=== PATIENT | male | born 1995 | race Caucasian/White ===

== ENCOUNTER 2018-03-08 17:29 | Emergency (ER) | payer OTHER ==
[2018-03-08] MEDS ORDERED: NA CHLORIDE 0.9% 1,000 ML ONE (18:13)
[2018-03-08 18:32] LABS: Absolute Lymphocytes (CBC) 2.4 K/uL (0.7-4.9); Absolute Monocytes 0.6 K/uL (0.1-1.3); Absolute Neutrophil 6.5 K/uL (1.8-8.0); Basophils % 0.7 % (0-1.3); Eosinophils % 5.2 % (0-4.4); Hematocrit 45.9 % (39.6-49.0); Lymphocytes % 23.4 % (15.3-44.8); MCH 29.8 pg (27.0-35.0); MCV 86.6 fL (80-100); MPV 8.4 fL (7.6-11.3); Monocytes % 6.4 % (3.3-12.3)
[2018-03-08 18:40] LABS: BUN Blood Urea Nitrogen 13 mg/dL (7-18); Bicarbonate 28 mmol/L (21-32); Glucose Level 221 mg/dL (74-106); Sodium Level 138 mmol/L (136-145)
[2018-03-08 18:40] LABS: Urine Blood NEGATIVE (NEG); Urine Glucose TRACE (NEG); Urine Protein NEGATIVE (NEG)
--- NOTE | 2018-03-08 19:19 | EDPHYS ---
Physician Documentation [facility] Name: Shawn Matthews Age: 22 yrs Sex: Male : 1995 Arrival Date: 03/08/2018 Time: 17:32 Bed 4 Private MD: None, None ED Physician Shawn Hobbs HPI: 03/08 19:19 This 22 yrs old Male presents to ER via Ambulatory with complaints of High kb Blood Sugar. 19:19 The patient or guardian reports hyperglycemia, that was potentially precipitated by no kb particular event. Onset: The symptoms/episode began/occurred 4 day(s) ago. Associated signs and symptoms: Pertinent positives: None. Current symptoms: In the emergency department the patient's symptoms are unchanged from the initial presentation. The patient has experienced similar episodes in the past. The patient has been recently seen by a physician:. Pt states his bgl has been elevated since Sunday. Denies change in diet or medications. . Historical: - Allergies: 17:59 No Known Allergies; ch - Home Meds: 17:59 Insulin: Regular Sub-Q [Active]; ch - PMHx: 17:59 Diabetes - IDDM; ch - PSHx: 17:59 None; ch - Immunization history:: Adult Immunizations up to date, Last tetanus immunization: up to date Flu vaccine is up to date. - Social history:: Smoking status: Patient/guardian denies using tobacco, Patient/guardian denies using alcohol, street drugs. - Ebola Screening: : Patient negative for fever greater than or equal to 101.5 degrees Fahrenheit, and additional compatible Ebola Virus Disease symptoms Patient denies exposure to infectious person Patient denies travel to an Ebola-affected area in the 21 days before illness onset No symptoms or risks identified at this time. ROS: 19:19 Constitutional: Negative for fever, chills, and weight loss, Neck: Negative for injury, kb pain, and swelling, Cardiovascular: Negative for chest pain, palpitations, and edema, Respiratory: Negative for shortness of breath, cough, wheezing, and pleuritic chest pain, Abdomen/GI: Negative for abdominal pain, nausea, vomiting, diarrhea, and constipation, Back: Negative for injury and pain, : Negative for injury, bleeding, discharge, and swelling, MS/Extremity: Negative for injury and deformity, Skin: Negative for injury, rash, and discoloration, Neuro: Negative for headache, weakness, numbness, tingling, and seizure. Exam: 19:19 Constitutional: This is a well developed, well nourished patient who is awake, alert, kb and in no acute distress. Head/Face: Normocephalic, atraumatic. Eyes: Pupils equal round and reactive to light, extra-ocular motions intact. Lids and lashes normal. Conjunctiva and sclera are non-icteric and not injected. Cornea within normal limits. Periorbital areas with no swelling, redness, or edema. ENT: Nares patent. No nasal discharge, no septal abnormalities noted. Tympanic membranes are normal and external auditory canals are clear. Oropharynx with no redness, swelling, or masses, exudates, or evidence of obstruction, uvula midline. Mucous membranes moist. Neck: Trachea midline, no thyromegaly or masses palpated, and no cervical lymphadenopathy. Supple, full range of motion without nuchal rigidity, or vertebral point tenderness. No Meningismus. Chest/axilla: Normal chest wall appearance and motion. Nontender with no deformity. No lesions are appreciated. Cardiovascular: Regular rate and rhythm with a normal S1 and S2. No gallops, murmurs, or rubs. Normal PMI, no JVD. No pulse deficits. Respiratory: Lungs have equal breath sounds bilaterally, clear to auscultation and percussion. No rales, rhonchi or wheezes noted. No increased work of breathing, no retractions or nasal flaring. Abdomen/GI: Soft, non-tender, with normal bowel sounds. No distension or tympany. No guarding or rebound. No evidence of tenderness throughout. Back: No spinal tenderness. No costovertebral tenderness. Full range of motion. Skin: Warm, dry with normal turgor. Normal color with no rashes, no lesions, and no evidence of cellulitis. MS/ Extremity: Pulses equal, no cyanosis. Neurovascular intact. Full, normal range of motion. Neuro: Awake and alert, GCS 15, oriented to person, place, time, and situation. Cranial nerves II-XII grossly intact. Motor strength 5/5 in all extremities. Sensory grossly intact. Cerebellar exam normal. Normal gait. Vital Signs: 17:59 BP 135 / 88; Pulse 71; Resp 16; Temp 98.3; Pulse Ox 99% on R/A; Weight 108.86 kg; ch Height 5 ft. 11 in. (180.34 cm); Pain 0/10; 19:29 BP 132 / 78; Pulse 65; Resp 18; Temp 98.3; Pulse Ox 99% on R/A; Pain 0/10; ch 17:59 Body Mass Index 33.47 (108.86 kg, 180.34 cm) MDM: 17:46 Patient medically screened. kb 19:20 Data reviewed: vital signs, nurses notes. Data interpreted: Pulse oximetry: on room air kb is 99 %. Interpretation: normal. Counseling: I had a detailed discussion with the patient and/or guardian regarding: the historical points, exam findings, and any diagnostic results supporting the discharge/admit diagnosis, lab results, the need for outpatient follow up, [employer], to return to the emergency department if symptoms worsen or persist or if there are any questions or concerns that arise at home. 03/08 17:44 Order name: Glucose, Ancillary Testing; Complete Time: 17:50 EDMS 03/08 17:46 Order name: CBC with Diff; Complete Time: 18:39 kb 03/08 17:46 Order name: Basic Metabolic Panel; Complete Time: 19:07 kb 03/08 17:46 Order name: Acetone, Serum; Complete Time: 19:07 kb 03/08 18:18 Order name: Urine Dipstick--Ancillary (enter results); Complete Time: 18:41 eb 03/08 17:46 Order name: Urine Dipstick-Ancillary (obtain specimen); Complete Time: 18:20 kb Administered Medications: 18:20 Drug: NS 0.9% 1000 ml Route: IV; Rate: 1000 ml; Site: left forearm; Point of Care Testing: Blood Glucose: 18:01 Blood Glucose: 190 mg/dL; Ranges: Critical Glucose Levels:Adult <50 mg/dl or >400 mg/dl <40 mg/dl or >180 mg/dl Disposition: 03/08/18 19:19 Discharged to Home. Impression: Hyperglycemia, unspecified. - Condition is Stable. - Discharge Instructions: Hyperglycemia, [id number]. - Medication Reconciliation Form, Thank You Letter, Antibiotic Education, Prescription Opioid Use form. - Follow up: Emergency Department; When: As needed; Reason: Worsening of condition. Follow up: Private Physician; When: 2 - 3 days; Reason: Recheck today's complaints, Continuance of care, Re-evaluation by your physician. Signatures: Dispatcher [employer] Lottie Stafford, DERIK VALDES-Fabby Colin, RN RN Corrections: (The following items were deleted from the chart) 19:30 19:19 03/08/2018 19:19 Discharged to Home. Impression: Hyperglycemia, unspecified. ch Condition is Stable. Forms are Medication Reconciliation Form, Thank You Letter, Antibiotic Education, Prescription Opioid Use. Follow up: Emergency Department; When: As needed; Reason: Worsening of condition. Follow up: Private Physician; When: 2 - 3 days; Reason: Recheck today's complaints, Continuance of care, Re-evaluation by your physician. kb
--- NOTE | 2018-03-08 19:19 | ER ---
Nurse's Notes [facility] Name: Shawn Matthews Age: 22 yrs Sex: Male : 1995 Arrival Date: 03/08/2018 Time: 17:32 Bed 4 Private MD: None, None Diagnosis: Hyperglycemia, unspecified Presentation: 03/08 17:57 Presenting complaint: Patient states: HIGH BLOOD SUGAR SINCE SUNDAY. C/O STOMACH ACHES ch WELL. Transition of care: patient was not received from another setting of care. Onset of symptoms was March 05, 2018. Risk Assessment: Do you want to hurt yourself or someone else? Patient reports no desire to harm self or others. Initial Sepsis Screen: Does the patient meet any 2 criteria? No. Patient's initial sepsis screen is negative. Does the patient have a suspected source of infection? No. Patient's initial sepsis screen is negative. Care prior to arrival: None. 17:57 Method Of Arrival: Ambulatory 17:57 Acuity: KURT 3 Triage Assessment: 17:59 General: Appears in no apparent distress. comfortable, Behavior is calm, cooperative, ch appropriate for age. Pain: Complains of pain in abdomen. Neuro: No deficits noted. Historical: - Allergies: 17:59 No Known Allergies; ch - Home Meds: 17:59 Insulin: Regular Sub-Q [Active]; ch - PMHx: 17:59 Diabetes - IDDM; ch - PSHx: 17:59 None; ch - Immunization history:: Adult Immunizations up to date, Last tetanus immunization: up to date Flu vaccine is up to date. - Social history:: Smoking status: Patient/guardian denies using tobacco, Patient/guardian denies using alcohol, street drugs. - Ebola Screening: : Patient negative for fever greater than or equal to 101.5 degrees Fahrenheit, and additional compatible Ebola Virus Disease symptoms Patient denies exposure to infectious person Patient denies travel to an Ebola-affected area in the 21 days before illness onset No symptoms or risks identified at this time. Screenin:01 Abuse screen: Denies threats or abuse. Denies injuries from another. Nutritional ch screening: No deficits noted. Tuberculosis screening: No symptoms or risk factors identified. Fall Risk None identified. Assessment: 18:01 Reassessment: Patient appears in no apparent distress at this time. Patient and/or ch family updated on plan of care and expected duration. Pain level reassessed. Patient is alert, oriented x 3, equal unlabored respirations, skin warm/dry/pink. General: Appears in no apparent distress. comfortable, Behavior is calm, cooperative, appropriate for age. Pain: Denies pain. Neuro: No deficits noted. Respiratory: Airway is patent Respiratory effort is even, unlabored, Breath sounds are clear bilaterally. GI: Abdomen is round non-distended, Bowel sounds present X 4 quads. Abd is soft and non tender X 4 quads. : No signs and/or symptoms were reported regarding the genitourinary system. Derm: Skin is pink, warm \T\ dry. 18:51 Reassessment: Patient appears in no apparent distress at this time. No changes from previously documented assessment. Patient and/or family updated on plan of care and expected duration. Pain level reassessed. Patient is alert, oriented x 3, equal unlabored respirations, skin warm/dry/pink. 19:29 Reassessment: Patient appears in no apparent distress at this time. Patient and/or ch family updated on plan of care and expected duration. Pain level reassessed. Patient is alert, oriented x 3, equal unlabored respirations, skin warm/dry/pink. Patient denies pain at this time. Patient states feeling better. Patient states symptoms have improved. Vital Signs: 17:59 BP 135 / 88; Pulse 71; Resp 16; Temp 98.3; Pulse Ox 99% on R/A; Weight 108.86 kg; Height 5 ft. 11 in. (180.34 cm); Pain 0/10; 19:29 BP 132 / 78; Pulse 65; Resp 18; Temp 98.3; Pulse Ox 99% on R/A; Pain 0/10; 17:59 Body Mass Index 33.47 (108.86 kg, 180.34 cm) ED Course: 17:32 Patient arrived in ED. sb2 17:32 None, None is Private Physician. sb2 17:41 Lottie Ruiz [facility]-C [facility]. kb 17:41 Shawn Hobbs MD is Attending Physician. kb 17:49 Fabby Robles, JACQUELINE is Primary Nurse. 17:58 Triage completed. 17:59 Arm band placed on left wrist. Patient placed in an exam room, on a stretcher, on pulse oximetry. 18:01 No apparent distress. Resting quietly. 18:01 Patient has correct armband on for positive identification. Placed in gown. Bed in low ch position. Call light in reach. Side rails up X 1. Pulse ox on. NIBP on. Warm blanket given. 18:05 Inserted saline lock: 20 gauge in left antecubital area, using aseptic technique. Blood em1 collected. 19:16 Report given to Mesha. 19:29 No provider procedures requiring assistance completed. IV discontinued, intact, bleeding controlled, No redness/swelling at site. Pressure dressing applied. Administered Medications: 18:20 Drug: NS 0.9% 1000 ml Route: IV; Rate: 1000 ml; Site: left forearm; Point of Care Testing: Blood Glucose: 18:01 Blood Glucose: 190 mg/dL; Ranges: Outcome: 19:19 Discharge ordered by . kb 19:29 Discharged to home ambulatory, with family. 19:29 Condition: improved 19:29 Discharge instructions given to patient, family, Instructed on discharge instructions, follow up and referral plans. Demonstrated understanding of instructions, follow-up care. 19:30 Patient left the ED. Signatures: Lottie Ruiz, DERIK VALDES-Fabby Colin, RN RN Uriel Arevalo em1 Rose Chaparro sb2
== END 2018-03-08 19:30 | disposition home or self-care (01) ==
LOC: ER 17:29
DX: E11.65 Type 2 diabetes mellitus with hyperglycemia (principal); Z79.4 Long term (current) use of insulin
CPT/HCPCS: 36415; 80048; 81003; 82010; 82962; 85025; 99284; J7030